=== PATIENT | female | born 1970 | race Caucasian/White ===

== ENCOUNTER 2022-09-21 09:40 | Inpatient (IN) | payer OTHER ==
[~2022-09-21] VITALS: Ht 165.1 cm; Wt 105.0 kg
[2022-09-21] MEDS ORDERED: LABETALOL HCL 5 MG/ML 20 ML VIAL IVP PRN ×2 (09:45)
[2022-09-21] MEDS ORDERED: IOHEXOL 350 MG/ML 100 ML VIAL ONE (10:08)
[2022-09-21] MEDS ORDERED: SODIUM CHLORIDE 0.9% 100 ML ONE (10:08)
[2022-09-21 10:14] LABS: BASOPHILS % (AUTO) 0.7 % (0.0-2.0); EOSINOPHILS % (AUTO) 2.1 % (1.0-6.0); HEMATOCRIT 43.1 % (36-46); HEMOGLOBIN 13.9 g/dL (12.0-16.0); LYMPHOCYTES # (AUTO) 2.1 K/uL (1.0-4.8); LYMPHOCYTES % (AUTO) 29.2 % (22.0-44.0); MEAN CORPUSCULAR HEMOGLOBIN 28.1 pg (26.0-34.0); MEAN CORPUSCULAR HGB CONC 32.2 G/dL (31.0-37.0); MEAN CORPUSCULAR VOLUME 87 fL (80-100); MONOCYTES # (AUTO) 0.4 K/uL (0.1-1.0); NEUTROPHILS # (AUTO) 4.5 K/uL (1.8-7.7); PLATELET COUNT (AUTO) 311 K/uL (150-450); RED BLOOD CELL COUNT(AUTO) 4.93 MIL/uL (4.00-5.20); RED CELL DISTRIBUTION WIDTH 13.6 % (11.5-14.5)
[2022-09-21 10:25] LABS: ANION GAP 8 mmol/L (8-16); CALCIUM, TOTAL 9.2 mg/dL (8.8-10.5); CARBON DIOXIDE 29 mmol/L (22-29); CHLORIDE 100 mmol/L (98-107); CREATININE 0.96 mg/dL (0.60-1.30); GLOMERULAR FILTR. RATE CALC > 60 mL/min (>60); GLUCOSE,RANDOM 316 mg/dL (70-110); POTASSIUM 4.2 mmol/L (3.5-5.1); SODIUM SERUM 137 mmol/L (136-145)
[2022-09-21 10:27] LABS: ALANINE AMINOTRANSFERASE 21 U/L (12-78); ALBUMIN 3.2 g/dL (3.4-5.0); ALKALINE PHOSPHATASE 121 U/L (46-116); ASPARTATE AMINOTRANSFERASE 11 U/L (15-37); BILIRUBIN,TOTAL 0.3 mg/dL (0.1-1.0)
[2022-09-21] MEDS ORDERED: ASPIRIN 81 MG CHEWABLE TABLET PO ONE (10:30)
[2022-09-21] MEDS ORDERED: DEXTROSE 50%-WATER 25 GM/50 ML SYRINGE IVP PRN (10:30)
[2022-09-21] MEDS ORDERED: ONDANSETRON HCL 4 MG/2 ML VIAL IVP PRN (10:30)
[2022-09-21] MEDS ORDERED: ACETAMINOPHEN 325 MG TABLET PO PRN (10:30)
[2022-09-21 10:36] LABS: PROTHROMBIN TIME 10.2 SEC (9.4-11.6)
[2022-09-21] MEDS: ASPIRIN 325 MG TABLET PO SCH (10:38)
[2022-09-21] MEDS: ATORVASTATIN CALCIUM 40 MG TABLET PO SCH (10:38)
[2022-09-21 14:38] LABS: APPEARANCE,URINE CLEAR (CLEAR); BILIRUBIN,URINE NEGATIVE (NEGATIVE); GLUCOSE, URINE (UA) NEGATIVE (NEGATIVE); KETONES,URINE NEGATIVE (NEGATIVE); LEUKOCYTE ESTERASE ,URINE NEGATIVE (NEGATIVE); NITRATE,URINE NEGATIVE (NEGATIVE); OCCULT BLOOD,URINE NEGATIVE (NEGATIVE); PROTEIN,URINE NEGATIVE (NEGATIVE); SPECIFIC GRAVITIY, URINE 1.035 (1.003-1.030); UROBILINOGEN,URINE <=1.0 mg/dL (<=1.0)
[2022-09-21 14:40] LABS: BACTERIA,URINE None Seen /HPF (None Seen); RBC,URINE None Seen /HPF (0-2); WBC,URINE None Seen /HPF (0-5)
[2022-09-21 15:03] LABS: AMPHET/METH SCREEN,URINE NEGATIVE (NEGATIVE); BARBITURATE SCREEN, URINE NEGATIVE (NEGATIVE); BENZODIAZEPINES SCREEN,URINE NEGATIVE (NEGATIVE); CANNABINOID SCREEN,URINE NEGATIVE (NEGATIVE); COCAINE SCREEN,URINE NEGATIVE (NEGATIVE); METHADONE SCREEN, URINE NEGATIVE (NEGATIVE); OPIATE SCREEN,URINE NEGATIVE (NEGATIVE); PHENCYCLIDINE SCREEN,URINE NEGATIVE (NEGATIVE)
[2022-09-21 15:07] LABS: GLUCOMETER DEV NAME(LOC) ER.6; GLUCOSE,POINT OF CARE 127 MG/DL (70-110)
[2022-09-21] MEDS: HEPARIN SODIUM,PORCINE 5,000 UNITS/ML VIAL SQ SCH ×2 (15:52→23:25)
[2022-09-21] MEDS: INSULIN LISPRO 100 UNITS/ML SQ PRN ×2 (17:23→22:16)
[2022-09-21] MEDS ORDERED: ACETAMINOPHEN 500 MG TABLET PO ONE (18:45)
[2022-09-21] MEDS ORDERED: IPRATROPIUM BROMIDE 0.5 MG/2.5 ML NEB SOLUTION NEB ONE (19:15)
[2022-09-21] MEDS ORDERED: ALBUTEROL SULFATE 2.5 MG/0.5 ML NEB SOLUTION NEB ONE (19:15)
[2022-09-21 19:42] LABS: AMPHET/METH SCREEN,URINE POSITIVE (NEGATIVE); BARBITURATE SCREEN, URINE NEGATIVE (NEGATIVE); BENZODIAZEPINES SCREEN,URINE NEGATIVE (NEGATIVE); CANNABINOID SCREEN,URINE NEGATIVE (NEGATIVE); COCAINE SCREEN,URINE NEGATIVE (NEGATIVE); METHADONE SCREEN, URINE NEGATIVE (NEGATIVE); OPIATE SCREEN,URINE NEGATIVE (NEGATIVE); PHENCYCLIDINE SCREEN,URINE NEGATIVE (NEGATIVE)
[2022-09-21 20:27] VITALS: BP 155/82; PULSE 69; RESP 18; TEMP 98.4
[2022-09-21 20:47] LABS: GLUCOMETER DEV NAME(LOC) 5S.2C; GLUCOSE,POINT OF CARE 188 MG/DL (70-110)
[2022-09-21] MEDS: FAMOTIDINE 20 MG TABLET PO SCH (22:15)
[2022-09-21] MEDS: DOCUSATE SODIUM 100 MG CAPSULE PO SCH (22:15)
[2022-09-21] MEDS: MELATONIN 3 MG TABLET PO PRN (23:25)
[2022-09-21 23:35] VITALS: BP 154/77; PULSE 72; RESP 19; TEMP 98.1
[2022-09-22] VITALS (9 sets, daily range): BP systolic 133–175; BP diastolic 72–100; PULSE 72–85; RESP 16–20; TEMP 97.9–98.1; O2SAT 92–95
[2022-09-22] MEDS ORDERED: LORazepam 2 MG/ML VIAL IVP ONE (03:00)
[2022-09-22 05:41] LABS: GLUCOMETER DEV NAME(LOC) 5S.1B; GLUCOSE,POINT OF CARE 200 MG/DL (70-110)
[2022-09-22] MEDS: INSULIN LISPRO 100 UNITS/ML SQ PRN ×4 (05:49→21:29)
[2022-09-22] MEDS: FAMOTIDINE 20 MG TABLET PO SCH ×2 (08:47→21:28)
[2022-09-22] MEDS: DOCUSATE SODIUM 100 MG CAPSULE PO SCH ×2 (08:47→21:28)
[2022-09-22] MEDS: HEPARIN SODIUM,PORCINE 5,000 UNITS/ML VIAL SQ SCH ×3 (08:47→23:47)
[2022-09-22] MEDS: ASPIRIN 325 MG TABLET PO SCH (08:47)
[2022-09-22] MEDS: ATORVASTATIN CALCIUM 40 MG TABLET PO SCH (08:47)
[2022-09-22] MEDS ORDERED: LORazepam 1 MG TABLET PO ONE (10:15)
[2022-09-22] MEDS: ALBUTEROL SULFATE 2.5 MG/0.5 ML NEB SOLUTION NEB PRN ×2 (13:14→21:14)
[2022-09-22] MEDS: IPRATROPIUM BROMIDE 0.5 MG/2.5 ML NEB SOLUTION NEB PRN ×2 (13:14→21:14)
[2022-09-22 17:18] LABS: GLUCOMETER DEV NAME(LOC) 5N.2C; GLUCOSE,POINT OF CARE 232 MG/DL (70-110)
[2022-09-22] MEDS: MELATONIN 3 MG TABLET PO PRN (21:28)
[2022-09-22 21:31] LABS: GLUCOMETER DEV NAME(LOC) 5S.2C; GLUCOSE,POINT OF CARE 223 MG/DL (70-110)
[2022-09-22 21:31] LABS: GLUCOMETER DEV NAME(LOC) 5S.2C; GLUCOSE,POINT OF CARE 153 MG/DL (70-110)
[2022-09-23] VITALS (11 sets, daily range): BP systolic 132–156; BP diastolic 55–83; PULSE 65–86; RESP 17–20; TEMP 98–98.2; O2SAT 97–100
[2022-09-23] MEDS: INSULIN LISPRO 100 UNITS/ML SQ PRN ×4 (05:56→20:33)
[2022-09-23 05:58] LABS: GLUCOMETER DEV NAME(LOC) 5N.1C; GLUCOSE,POINT OF CARE 182 MG/DL (70-110)
[2022-09-23] MEDS: AmLODIPine BESYLATE 5 MG TABLET PO SCH (07:58)
[2022-09-23] MEDS: ASPIRIN 325 MG TABLET PO SCH (07:58)
[2022-09-23] MEDS: FAMOTIDINE 20 MG TABLET PO SCH ×2 (07:58→20:07)
[2022-09-23] MEDS: ATORVASTATIN CALCIUM 40 MG TABLET PO SCH (07:58)
[2022-09-23] MEDS: DOCUSATE SODIUM 100 MG CAPSULE PO SCH ×2 (07:59→20:07)
[2022-09-23] MEDS: HEPARIN SODIUM,PORCINE 5,000 UNITS/ML VIAL SQ SCH ×3 (07:59→23:57)
[2022-09-23 11:29] LABS: GLUCOMETER DEV NAME(LOC) 5S.2C; GLUCOSE,POINT OF CARE 225 MG/DL (70-110)
[2022-09-23] MEDS: ALBUTEROL SULFATE 2.5 MG/0.5 ML NEB SOLUTION NEB PRN ×2 (11:35→19:00)
[2022-09-23] MEDS: IPRATROPIUM BROMIDE 0.5 MG/2.5 ML NEB SOLUTION NEB PRN ×2 (11:36→19:00)
[2022-09-23 17:48] LABS: GLUCOMETER DEV NAME(LOC) 5N.1C; GLUCOSE,POINT OF CARE 152 MG/DL (70-110)
[2022-09-23] MEDS: MetFORMIN HCL 500 MG TABLET PO SCH (18:00)
[2022-09-23] MEDS: MELATONIN 3 MG TABLET PO PRN (21:13)
[2022-09-23 23:42] LABS: GLUCOMETER DEV NAME(LOC) 5N.1C; GLUCOSE,POINT OF CARE 207 MG/DL (70-110)
[2022-09-24] VITALS (11 sets, daily range): BP systolic 121–148; BP diastolic 63–84; PULSE 63–86; RESP 18–19; TEMP 97.7–98.6; O2SAT 94–100
[2022-09-24] MEDS ORDERED: LORazepam 2 MG/ML VIAL IVP ONE ×3 (00:15→15:00)
[2022-09-24] MEDS ORDERED: LORazepam 2 MG/ML VIAL IM ONE (00:15)
[2022-09-24] MEDS: INSULIN LISPRO 100 UNITS/ML SQ PRN ×4 (06:03→20:14)
[2022-09-24 06:14] LABS: CHOL/HDL RATIO 2.6 (3.9-5.7)
[2022-09-24] MEDS: MetFORMIN HCL 500 MG TABLET PO SCH ×2 (08:00→18:00)
[2022-09-24] MEDS: HEPARIN SODIUM,PORCINE 5,000 UNITS/ML VIAL SQ SCH ×3 (08:28→23:21)
[2022-09-24] MEDS: AmLODIPine BESYLATE 5 MG TABLET PO SCH (08:29)
[2022-09-24] MEDS: ASPIRIN 325 MG TABLET PO SCH (08:29)
[2022-09-24] MEDS: FAMOTIDINE 20 MG TABLET PO SCH ×2 (08:29→20:01)
[2022-09-24] MEDS: ATORVASTATIN CALCIUM 40 MG TABLET PO SCH (08:29)
[2022-09-24] MEDS: DOCUSATE SODIUM 100 MG CAPSULE PO SCH ×2 (08:29→20:01)
[2022-09-24] MEDS: ALBUTEROL SULFATE 2.5 MG/0.5 ML NEB SOLUTION NEB PRN ×2 (13:40→19:51)
[2022-09-24] MEDS: IPRATROPIUM BROMIDE 0.5 MG/2.5 ML NEB SOLUTION NEB PRN ×2 (13:40→19:51)
[2022-09-24 17:49] LABS: GLUCOMETER DEV NAME(LOC) 5N.1C; GLUCOSE,POINT OF CARE 194 MG/DL (70-110)
[2022-09-24] MEDS: MELATONIN 3 MG TABLET PO PRN (20:01)
[2022-09-24 21:22] LABS: GLUCOMETER DEV NAME(LOC) 5S.1B; GLUCOSE,POINT OF CARE 235 MG/DL (70-110)
[2022-09-25] VITALS (8 sets, daily range): BP systolic 118–139; BP diastolic 67–78; PULSE 70–77; RESP 18–20; TEMP 97.6–98.2; O2SAT 95–99
[2022-09-25 00:08] LABS: GLUCOMETER DEV NAME(LOC) 5S.2C; GLUCOSE,POINT OF CARE 234 MG/DL (70-110)
[2022-09-25 00:08] LABS: GLUCOMETER DEV NAME(LOC) 5S.2C; GLUCOSE,POINT OF CARE 163 MG/DL (70-110)
[2022-09-25] MEDS: INSULIN LISPRO 100 UNITS/ML SQ PRN ×3 (06:10→17:35)
[2022-09-25] MEDS: MetFORMIN HCL 500 MG TABLET PO SCH (08:00)
[2022-09-25] MEDS: ATORVASTATIN CALCIUM 40 MG TABLET PO SCH (08:39)
[2022-09-25] MEDS: AmLODIPine BESYLATE 5 MG TABLET PO SCH (08:39)
[2022-09-25] MEDS: DOCUSATE SODIUM 100 MG CAPSULE PO SCH (08:39)
[2022-09-25] MEDS: HEPARIN SODIUM,PORCINE 5,000 UNITS/ML VIAL SQ SCH ×2 (08:39→16:00)
[2022-09-25] MEDS: FAMOTIDINE 20 MG TABLET PO SCH (08:39)
[2022-09-25] MEDS: ASPIRIN 325 MG TABLET PO SCH (08:39)
[2022-09-25] MEDS ORDERED: ASPI81TA87 PO (11:21)
[2022-09-25] MEDS: ALBUTEROL SULFATE 2.5 MG/0.5 ML NEB SOLUTION NEB PRN (11:23)
[2022-09-25] MEDS: IPRATROPIUM BROMIDE 0.5 MG/2.5 ML NEB SOLUTION NEB PRN (11:24)
[2022-09-25] MEDS ORDERED: AMLO-257 PO (11:31)
[2022-09-25] MEDS ORDERED: ATOR40TA28 PO (11:31)
[2022-09-25] MEDS ORDERED: FAMO20 PO (11:32)
[2022-09-25] MEDS ORDERED: DOCU-385 PO (11:32)
[2022-09-25] MEDS ORDERED: GLIP5TAB12 PO (11:33)
[2022-09-25] MEDS ORDERED: ACET-2247 PO (11:34)
[2022-09-25] MEDS ORDERED: ALBU2.5V39 NEB (11:35)
[2022-09-25] MEDS ORDERED: INSU100V SQ (11:37)
[2022-09-25 17:28] LABS: GLUCOMETER DEV NAME(LOC) 5S.1B; GLUCOSE,POINT OF CARE 166 MG/DL (70-110)
[2022-09-25] MEDS ORDERED: MetFORMIN HCL 850 MG TABLET PO SCH (18:00)
[2022-09-25 20:27] LABS: GLUCOMETER DEV NAME(LOC) 5N.2C; GLUCOSE,POINT OF CARE 189 MG/DL (70-110)
[2022-09-25 20:27] LABS: GLUCOMETER DEV NAME(LOC) 5N.2C; GLUCOSE,POINT OF CARE 201 MG/DL (70-110)
[2022-09-26] MEDS ORDERED: GlipiZIDE 5 MG TABLET PO SCH (06:30)
[2022-09-26] MEDS ORDERED: ASPIRIN 81 MG CHEWABLE TABLET PO SCH (09:00)
== END 2022-09-25 18:45 | DRG 65 ==
LOC: EMS 09:40 → 5S 19:21
PROVIDERS: ADMIT Internal Medicine; ATTEND Internal Medicine
DX: I63.9 Cerebral infarction, unspecified (principal); G81.94 Hemiplegia, unspecified affecting left nondominant side; E11.9 Type 2 diabetes mellitus without complications; E66.01 Morbid (severe) obesity due to excess calories; R29.704 NIHSS score 4; F17.210 Nicotine dependence, cigarettes, uncomplicated; J44.9 Chronic obstructive pulmonary disease, unspecified; R29.810 Facial weakness; Z83.3 Family history of diabetes mellitus; Z68.38 Body mass index [BMI] 38.0-38.9, adult; Z88.5 Allergy status to narcotic agent; Z71.6 Tobacco abuse counseling
CPT/HCPCS: 70496; 70498; 70551; 71045; 80053; 80061; 80307; 81001; 82948; 82962; 84484; 85025; 85610; 85730; 86850; 86900; 86901; 92507; 92523; 92526; 92610; 93005; 93306; 94640; 97116; 97162; 97166; 97530; 97535; 99291; J1644; J1815; J2060; J7050; Q9967; 36415-L1; 36415-TC; 70450; 70450-TC; J7613

== ENCOUNTER 2023-02-09 15:34 | Emergency (ER) | payer OTHER ==
[~2023-02-09] VITALS: Ht 167.6 cm; Wt 113.9 kg
[~2023-02-09 15:34] MED LIST: ACET-2247 PO; ALBU2.5V39 NEB; AMLO-257 PO; ATOR40TA28 PO; DOCU-385 PO; FAMO20 PO; FLUT1BLS IH; GABA-1181 PO; GLIP5TAB16 PO; HYDR-4527 PO; INSLAN SQ
[2023-02-09 17:37] VITALS: BP 151/72; PULSE 70; RESP 16; TEMP 98.2
[2023-02-09] MEDS ORDERED: ACETAMINOPHEN 500 MG TABLET PO ONE (18:00)
== END 2023-02-09 20:03 | disposition still patient (30) ==
LOC: EMS 15:35
DX: S09.90XA Unspecified injury of head, initial encounter (principal); S62.632A Displaced fracture of distal phalanx of right middle finger, initial encounter for closed fracture; R42 Dizziness and giddiness; J44.9 Chronic obstructive pulmonary disease, unspecified; E11.9 Type 2 diabetes mellitus without complications; I11.0 Hypertensive heart disease with heart failure; I50.9 Heart failure, unspecified; Z90.49 Acquired absence of other specified parts of digestive tract; Z88.6 Allergy status to analgesic agent; Z98.890 Other specified postprocedural states; Y08.89XA Assault by other specified means, initial encounter; Y93.89 Activity, other specified; Y92.89 Other specified places as the place of occurrence of the external cause; Y99.8 Other external cause status
CPT/HCPCS: 70450; 82962; 99284

== ENCOUNTER 2023-03-07 18:43 | Inpatient (IN) | payer MEDICAID, OTHER ==
[~2023-03-07] VITALS: Ht 167.6 cm; Wt 106.8 kg
[~2023-03-07 18:43] MED LIST changes: -AMLO-257 PO; +BUSP10TA23 PO; +DULO-113 PO; -HYDR-4527 PO; -INSLAN SQ; +MONT-40 PO; +SEMA1PEN3 SQ; +TRAZ-186 PO
[2023-03-07] MEDS ORDERED: IPRATROPIUM BROMIDE 0.5 MG/2.5 ML NEB SOLUTION NEB ONE (22:15)
[2023-03-07] MEDS ORDERED: ALBUTEROL SULFATE 2.5 MG/0.5 ML NEB SOLUTION NEB ONE (22:15)
[2023-03-07] MEDS ORDERED: MethylPREDNISolone SOD SUCC 125 MG/2 ML VIAL IVP ONE (22:15)
[2023-03-07 22:35] LABS: BASOPHILS % (AUTO) 0.3 % (0.0-2.0); HEMATOCRIT 33.7 % (36-46); HEMOGLOBIN 11.2 g/dL (12.0-16.0); LYMPHOCYTES # (AUTO) 2.9 K/uL (1.0-4.8); LYMPHOCYTES % (AUTO) 30.1 % (22.0-44.0); MEAN CORPUSCULAR HGB CONC 33.3 G/dL (31.0-37.0); MEAN CORPUSCULAR VOLUME 87 fL (80-100); MONOCYTES # (AUTO) 0.6 K/uL (0.1-1.0); MONOCYTES % (AUTO) 6.5 % (2.0-9.0); NEUTROPHILS # (AUTO) 5.7 K/uL (1.8-7.7); NEUTROPHILS % (AUTO) 60.1 % (40.0-70.0); PLATELET COUNT (AUTO) 321 K/uL (150-450); RED BLOOD CELL COUNT(AUTO) 3.88 MIL/uL (4.00-5.20); RED CELL DISTRIBUTION WIDTH 14.5 % (11.5-14.5); WHITE BLOOD COUNT (AUTO) 9.5 K/uL (4.5-11.0)
[2023-03-07 22:44] LABS: ANION GAP 4 mmol/L (8-16); CALCIUM, TOTAL 9.6 mg/dL (8.8-10.5); CARBON DIOXIDE 33 mmol/L (22-29); CHLORIDE 104 mmol/L (98-107); CREATININE 1.05 mg/dL (0.60-1.30); GLOMERULAR FILTR. RATE CALC 54 mL/min (>60); GLUCOSE,RANDOM 114 mg/dL (70-110); POTASSIUM 3.9 mmol/L (3.5-5.1); SODIUM SERUM 141 mmol/L (136-145); UREA NITROGEN, BLOOD 26 mg/dL (7-18)
[2023-03-07] MEDS ORDERED: ONDANSETRON HCL 4 MG/2 ML VIAL IVP PRN (22:45)
[2023-03-07] MEDS ORDERED: ACETAMINOPHEN 325 MG TABLET PO PRN (22:45)
[2023-03-07] MEDS ORDERED: DEXTROSE 50%-WATER 25 GM/50 ML SYRINGE IVP PRN (22:45)
[2023-03-07 22:50] LABS: ALANINE AMINOTRANSFERASE 19 U/L (12-78); ALBUMIN 3.3 g/dL (3.4-5.0); ALKALINE PHOSPHATASE 101 U/L (46-116); ASPARTATE AMINOTRANSFERASE 14 U/L (15-37); BILIRUBIN,TOTAL 0.2 mg/dL (0.1-1.0); LIPASE 32 U/L (16-77); TOTAL PROTEIN, SERUM 7.5 g/dL (6.4-8.2)
[2023-03-07 22:51] LABS: TROPONIN I-HIGH SENSITIVITY 44 ng/L (<51)
[2023-03-07 22:52] LABS: LACTIC ACID 0.7 mmol/L (0.4-2.0)
[2023-03-07 22:54] LABS: B-TYPE NATRIURETIC PEPTIDE 47 pg/mL (0-100)
[2023-03-07] MEDS ORDERED: CefTRIAXone 1 GM/DEXTROSE 50 ML IV SCH (23:00)
[2023-03-07 23:31] LABS: GLUCOMETER DEV NAME(LOC) ER.6; GLUCOSE,POINT OF CARE 111 MG/DL (70-110)
[2023-03-07] MEDS: HEPARIN SODIUM,PORCINE 5,000 UNITS/ML VIAL SQ SCH (23:52)
[2023-03-08] VITALS (9 sets, daily range): BP systolic 136–156; BP diastolic 75–90; PULSE 61–91; RESP 18–20; TEMP 97.8–98.2; O2SAT 95–99
[2023-03-08] MEDS ORDERED: AZITHROMYCIN 500 MG/NS 250 ML IV SCH
[2023-03-08 00:46] LABS: COVID AG,FIA SOURCE NASAL SWAB
[2023-03-08 01:01] LABS: INFLUENZA TYPE A NEGATIVE FOR TYPE A (NEGATIVE)
[2023-03-08 01:05] LABS: SARS-COV2 (COVID) ANTIGEN,FIA Positive (Negative)
[2023-03-08 01:06] LABS: INFLUENZA TYPE B POSITIVE FOR TYPE B (NEGATIVE)
[2023-03-08 02:55] LABS: APPEARANCE,URINE HAZY (CLEAR); BILIRUBIN,URINE NEGATIVE (NEGATIVE); COLOR,URINE LIGHT YELLOW (YELLOW); GLUCOSE, URINE (UA) NEGATIVE (NEGATIVE); KETONES,URINE NEGATIVE (NEGATIVE); LEUKOCYTE ESTERASE ,URINE NEGATIVE (NEGATIVE); NITRATE,URINE NEGATIVE (NEGATIVE); OCCULT BLOOD,URINE NEGATIVE (NEGATIVE); PROTEIN,URINE NEGATIVE (NEGATIVE); SPECIFIC GRAVITIY, URINE 1.023 (1.003-1.030); UROBILINOGEN,URINE <=1.0 mg/dL (<=1.0)
[2023-03-08 03:02] LABS: ALCOHOL, URINE DRUG SCREEN NEGATIVE (NEGATIVE); AMPHET/METH SCREEN,URINE NEGATIVE (NEGATIVE); BARBITURATE SCREEN, URINE NEGATIVE (NEGATIVE); BENZODIAZEPINES SCREEN,URINE NEGATIVE (NEGATIVE); CANNABINOID SCREEN,URINE NEGATIVE (NEGATIVE); COCAINE SCREEN,URINE NEGATIVE (NEGATIVE); METHADONE SCREEN, URINE NEGATIVE (NEGATIVE); OPIATE SCREEN,URINE NEGATIVE (NEGATIVE); PHENCYCLIDINE SCREEN,URINE NEGATIVE (NEGATIVE)
[2023-03-08 03:11] LABS: BACTERIA,URINE None Seen /HPF (None Seen); RBC,URINE None Seen /HPF (0-2); SQUAMOUS EPITHELIAL CELL,UR Moderate /LPF (None Seen); WBC,URINE None Seen /HPF (0-5)
[2023-03-08] MEDS ORDERED: PNEUMOCOCCAL VACCINE POLYVALENT 0.5 ML SYRINGE [PPSV23] IM. ONE (05:30)
[2023-03-08] MEDS ORDERED: IOHEXOL 350 MG/ML 100 ML VIAL ONE ×3 (05:38→14:35)
[2023-03-08] MEDS ORDERED: SODIUM CHLORIDE 0.9% 100 ML ONE ×3 (05:38→14:52)
[2023-03-08] MEDS ORDERED: SODIUM CHLORIDE 0.9% 500 ML IV ONE (05:55)
[2023-03-08] MEDS ORDERED: REMDESIVIR 200 MG in SODIUM CHLORIDE 0.9% 250 ML IV ONE (06:00)
[2023-03-08] MEDS: INSULIN LISPRO 100 UNITS/ML SQ PRN ×4 (06:11→20:49)
[2023-03-08 06:46] LABS: BASOPHILS % (AUTO) 0.1 % (0.0-2.0); EOSINOPHILS % (AUTO) 0.2 % (1.0-6.0); HEMATOCRIT 34.3 % (36-46); HEMOGLOBIN 11.6 g/dL (12.0-16.0); LYMPHOCYTES # (AUTO) 0.9 K/uL (1.0-4.8); LYMPHOCYTES % (AUTO) 7.6 % (22.0-44.0); MEAN CORPUSCULAR HEMOGLOBIN 29.2 pg (26.0-34.0); MEAN CORPUSCULAR VOLUME 86 fL (80-100); MONOCYTES # (AUTO) 0.1 K/uL (0.1-1.0); MONOCYTES % (AUTO) 1.2 % (2.0-9.0); NEUTROPHILS # (AUTO) 10.9 K/uL (1.8-7.7); PLATELET COUNT (AUTO) 333 K/uL (150-450); RED BLOOD CELL COUNT(AUTO) 3.98 MIL/uL (4.00-5.20)
[2023-03-08 06:50] LABS: NEUTROPHILS % (AUTO) 90.9 % (40.0-70.0)
[2023-03-08 07:16] LABS: CALCIUM, TOTAL 9.5 mg/dL (8.8-10.5); CREATININE 0.99 mg/dL (0.60-1.30); MAGNESIUM 2.3 mg/dL (1.80-2.40); POTASSIUM 4.2 mmol/L (3.5-5.1)
[2023-03-08] MEDS: HEPARIN SODIUM,PORCINE 5,000 UNITS/ML VIAL SQ SCH ×3 (09:16→23:36)
[2023-03-08] MEDS: FAMOTIDINE 20 MG TABLET PO SCH ×2 (09:17→20:38)
[2023-03-08] MEDS: ATORVASTATIN CALCIUM 40 MG TABLET PO SCH (09:17)
[2023-03-08] MEDS: DOCUSATE SODIUM 100 MG CAPSULE PO SCH ×2 (09:17→20:38)
[2023-03-08] MEDS: GABAPENTIN 300 MG CAPSULE PO SCH ×4 (09:17→20:38)
[2023-03-08] MEDS: OSELTAMIVIR PHOSPHATE 30 MG CAPSULE PO SCH ×2 (09:18→20:38)
[2023-03-08] MEDS: MONTELUKAST SODIUM 10 MG TABLET PO SCH (09:32)
[2023-03-08] MEDS: DULoxetine HCL 60 MG CAPSULE PO SCH ×2 (10:13→20:38)
[2023-03-08] MEDS ORDERED: LORazepam 2 MG/ML VIAL IVP ONE (10:30)
[2023-03-08] MEDS: FLUTICASONE/VILANTEROL 200-25 MCG/INH INHALER [14] IH SCH (10:44)
[2023-03-08 11:22] LABS: GLUCOMETER DEV NAME(LOC) 6N.2B; GLUCOSE,POINT OF CARE 196 MG/DL (70-110)
[2023-03-08] MEDS ORDERED: IOHEXOL 350 MG/ML 150 ML VIAL ONE (14:52)
[2023-03-08] MEDS: ALBUTEROL SULFATE 2.5 MG/0.5 ML NEB SOLUTION NEB PRN ×2 (15:50→21:30)
[2023-03-08] MEDS: IPRATROPIUM BROMIDE 0.5 MG/2.5 ML NEB SOLUTION NEB PRN ×2 (15:50→21:30)
[2023-03-08 17:01] LABS: GLUCOMETER DEV NAME(LOC) 4E.2; GLUCOSE,POINT OF CARE 237 MG/DL (70-110)
[2023-03-08 18:46] LABS: GLUCOMETER DEV NAME(LOC) 6N.2B; GLUCOSE,POINT OF CARE 175 MG/DL (70-110)
[2023-03-08] MEDS: TraZODone HCL 100 MG TABLET PO SCH (20:38)
[2023-03-08] MEDS: INSULIN GLARGINE,HUM.REC.ANLOG 100 UNITS/ML SQ SCH (20:49)
[2023-03-09 02:41] LABS: GLUCOMETER DEV NAME(LOC) 6S.2; GLUCOSE,POINT OF CARE 163 MG/DL (70-110)
[2023-03-09] MEDS: REMDESIVIR 100 MG in SODIUM CHLORIDE 0.9% 250 ML IV SCH (05:31)
[2023-03-09 05:39] VITALS: BP 147/78; PULSE 67; RESP 19; TEMP 97.8
[2023-03-09] MEDS: INSULIN LISPRO 100 UNITS/ML SQ PRN ×2 (05:40→11:48)
[2023-03-09 07:26] LABS: GLUCOMETER DEV NAME(LOC) 6S.2; GLUCOSE,POINT OF CARE 141 MG/DL (70-110)
[2023-03-09 08:05] VITALS: BP 145/79; PULSE 67; RESP 18; TEMP 97.8
[2023-03-09] MEDS: OSELTAMIVIR PHOSPHATE 30 MG CAPSULE PO SCH ×2 (08:05→20:28)
[2023-03-09] MEDS: MONTELUKAST SODIUM 10 MG TABLET PO SCH (08:05)
[2023-03-09] MEDS: ATORVASTATIN CALCIUM 40 MG TABLET PO SCH (08:05)
[2023-03-09] MEDS: DULoxetine HCL 60 MG CAPSULE PO SCH ×2 (08:05→20:28)
[2023-03-09] MEDS: HEPARIN SODIUM,PORCINE 5,000 UNITS/ML VIAL SQ SCH ×3 (08:05→23:09)
[2023-03-09] MEDS: DOCUSATE SODIUM 100 MG CAPSULE PO SCH ×2 (08:05→20:28)
[2023-03-09] MEDS: FAMOTIDINE 20 MG TABLET PO SCH ×2 (08:05→20:28)
[2023-03-09] MEDS: BREXPIPRAZOLE 1 MG TABLET PO SCH (08:05)
[2023-03-09] MEDS: GABAPENTIN 300 MG CAPSULE PO SCH ×4 (08:05→20:28)
[2023-03-09] MEDS: FLUTICASONE/VILANTEROL 200-25 MCG/INH INHALER [14] IH SCH (08:08)
[2023-03-09 10:55] LABS: ALBUMIN 2.9 g/dL (3.4-5.0); BILIRUBIN,TOTAL 0.1 mg/dL (0.1-1.0); CALCIUM, TOTAL 8.9 mg/dL (8.8-10.5); CREATININE 1.09 mg/dL (0.60-1.30); POTASSIUM 3.8 mmol/L (3.5-5.1); TOTAL PROTEIN, SERUM 6.8 g/dL (6.4-8.2)
[2023-03-09 15:38] VITALS: BP 140/82; PULSE 78; RESP 18; TEMP 98.1
[2023-03-09 17:23] VITALS: PULSE 78; RESP 18; O2SAT 97
[2023-03-09] MEDS: ALBUTEROL SULFATE 2.5 MG/0.5 ML NEB SOLUTION NEB PRN (17:23)
[2023-03-09] MEDS: IPRATROPIUM BROMIDE 0.5 MG/2.5 ML NEB SOLUTION NEB PRN (17:23)
[2023-03-09 17:26] VITALS: PULSE 85; RESP 18; O2SAT 98
[2023-03-09 18:02] LABS: GLUCOMETER DEV NAME(LOC) 6S.2; GLUCOSE,POINT OF CARE 147 MG/DL (70-110)
[2023-03-09 18:02] LABS: GLUCOMETER DEV NAME(LOC) 6S.2; GLUCOSE,POINT OF CARE 139 MG/DL (70-110)
[2023-03-09 19:49] VITALS: BP 135/82; PULSE 81; RESP 18; TEMP 98.2
[2023-03-09] MEDS: TraZODone HCL 100 MG TABLET PO SCH (20:28)
[2023-03-09] MEDS: INSULIN GLARGINE,HUM.REC.ANLOG 100 UNITS/ML SQ SCH (20:32)
[2023-03-10] VITALS (7 sets, daily range): BP systolic 101–152; BP diastolic 54–81; PULSE 69–75; RESP 18–20; TEMP 97.7–98.2; O2SAT 92–100
[2023-03-10 00:06] LABS: GLUCOMETER DEV NAME(LOC) 4E.2; GLUCOSE,POINT OF CARE 139 MG/DL (70-110)
[2023-03-10] MEDS: REMDESIVIR 100 MG in SODIUM CHLORIDE 0.9% 250 ML IV SCH ×2 (05:59→14:17)
[2023-03-10 07:30] LABS: GLUCOMETER DEV NAME(LOC) 4E.2; GLUCOSE,POINT OF CARE 129 MG/DL (70-110)
[2023-03-10] MEDS ORDERED: ONDANSETRON HCL 4 MG TABLET PO PRN (07:45)
[2023-03-10 08:12] LABS: ALBUMIN 2.9 g/dL (3.4-5.0); BILIRUBIN,TOTAL 0.2 mg/dL (0.1-1.0); CALCIUM, TOTAL 9.1 mg/dL (8.8-10.5); CREATININE 1.05 mg/dL (0.60-1.30); TOTAL PROTEIN, SERUM 6.9 g/dL (6.4-8.2)
[2023-03-10] MEDS: GABAPENTIN 300 MG CAPSULE PO SCH ×4 (08:32→20:45)
[2023-03-10] MEDS: DOCUSATE SODIUM 100 MG CAPSULE PO SCH ×2 (08:32→20:44)
[2023-03-10] MEDS: FAMOTIDINE 20 MG TABLET PO SCH ×2 (08:33→20:44)
[2023-03-10] MEDS: MONTELUKAST SODIUM 10 MG TABLET PO SCH (08:33)
[2023-03-10] MEDS: ATORVASTATIN CALCIUM 40 MG TABLET PO SCH (08:33)
[2023-03-10] MEDS: HEPARIN SODIUM,PORCINE 5,000 UNITS/ML VIAL SQ SCH ×2 (08:33→17:00)
[2023-03-10] MEDS: BREXPIPRAZOLE 1 MG TABLET PO SCH (09:14)
[2023-03-10] MEDS: DULoxetine HCL 60 MG CAPSULE PO SCH ×2 (09:14→20:44)
[2023-03-10] MEDS: OSELTAMIVIR PHOSPHATE 30 MG CAPSULE PO SCH ×2 (09:15→20:45)
[2023-03-10] MEDS: IPRATROPIUM BROMIDE 0.5 MG/2.5 ML NEB SOLUTION NEB PRN ×2 (09:40→16:56)
[2023-03-10] MEDS: ALBUTEROL SULFATE 2.5 MG/0.5 ML NEB SOLUTION NEB PRN ×2 (09:40→16:57)
[2023-03-10] MEDS: FLUTICASONE/VILANTEROL 200-25 MCG/INH INHALER [14] IH SCH (10:20)
[2023-03-10 12:37] LABS: GLUCOMETER DEV NAME(LOC) 4E.2; GLUCOSE,POINT OF CARE 137 MG/DL (70-110)
[2023-03-10] MEDS: INSULIN LISPRO 100 UNITS/ML SQ PRN ×2 (18:02→20:52)
[2023-03-10 20:01] LABS: GLUCOMETER DEV NAME(LOC) 6S.2; GLUCOSE,POINT OF CARE 146 MG/DL (70-110)
[2023-03-10] MEDS: TraZODone HCL 100 MG TABLET PO SCH (20:44)
[2023-03-10] MEDS: INSULIN GLARGINE,HUM.REC.ANLOG 100 UNITS/ML SQ SCH (20:51)
[2023-03-10 21:17] LABS: GLUCOMETER DEV NAME(LOC) 6S.2; GLUCOSE,POINT OF CARE 141 MG/DL (70-110)
[2023-03-11] VITALS (8 sets, daily range): BP systolic 102–120; BP diastolic 54–70; PULSE 73–95; RESP 17–22; TEMP 97.7–98.2; O2SAT 93–97
[2023-03-11] MEDS: HEPARIN SODIUM,PORCINE 5,000 UNITS/ML VIAL SQ SCH ×4 (00:08→23:44)
[2023-03-11 06:26] LABS: GLUCOMETER DEV NAME(LOC) 6S.2; GLUCOSE,POINT OF CARE 127 MG/DL (70-110)
[2023-03-11 08:31] LABS: ALBUMIN 3.3 g/dL (3.4-5.0); BILIRUBIN,TOTAL 0.2 mg/dL (0.1-1.0); CALCIUM, TOTAL 9.5 mg/dL (8.8-10.5); CREATININE 1.1 mg/dL (0.60-1.30); POTASSIUM 4.7 mmol/L (3.5-5.1); TOTAL PROTEIN, SERUM 7.4 g/dL (6.4-8.2)
[2023-03-11] MEDS: MONTELUKAST SODIUM 10 MG TABLET PO SCH (08:57)
[2023-03-11] MEDS: ATORVASTATIN CALCIUM 40 MG TABLET PO SCH (08:57)
[2023-03-11] MEDS: GABAPENTIN 300 MG CAPSULE PO SCH ×4 (08:58→20:49)
[2023-03-11] MEDS: DULoxetine HCL 60 MG CAPSULE PO SCH ×2 (08:58→20:48)
[2023-03-11] MEDS: ARIPiprazole 5 MG TABLET PO SCH (08:58)
[2023-03-11] MEDS: FAMOTIDINE 20 MG TABLET PO SCH ×2 (08:58→18:54)
[2023-03-11] MEDS: DOCUSATE SODIUM 100 MG CAPSULE PO SCH ×2 (08:58→20:48)
[2023-03-11] MEDS: OSELTAMIVIR PHOSPHATE 30 MG CAPSULE PO SCH ×2 (08:58→20:50)
[2023-03-11] MEDS: FLUTICASONE/VILANTEROL 200-25 MCG/INH INHALER [14] IH SCH (08:59)
[2023-03-11] MEDS: ALBUTEROL SULFATE 2.5 MG/0.5 ML NEB SOLUTION NEB PRN ×2 (12:08→18:44)
[2023-03-11] MEDS: IPRATROPIUM BROMIDE 0.5 MG/2.5 ML NEB SOLUTION NEB PRN ×2 (12:08→18:44)
[2023-03-11] MEDS: INSULIN LISPRO 100 UNITS/ML SQ PRN ×2 (12:33→21:01)
[2023-03-11] MEDS: REMDESIVIR 100 MG in SODIUM CHLORIDE 0.9% 250 ML IV SCH (13:52)
[2023-03-11] MEDS: TraZODone HCL 100 MG TABLET PO SCH (20:48)
[2023-03-11] MEDS: INSULIN GLARGINE,HUM.REC.ANLOG 100 UNITS/ML SQ SCH (21:01)
[2023-03-11 21:26] LABS: GLUCOMETER DEV NAME(LOC) 6S.2; GLUCOSE,POINT OF CARE 115 MG/DL (70-110)
[2023-03-11 21:26] LABS: GLUCOMETER DEV NAME(LOC) 6S.2; GLUCOSE,POINT OF CARE 141 MG/DL (70-110)
[2023-03-11 23:11] LABS: GLUCOMETER DEV NAME(LOC) 4E.2; GLUCOSE,POINT OF CARE 159 MG/DL (70-110)
[2023-03-12] VITALS (10 sets, daily range): BP systolic 102–117; BP diastolic 58–77; PULSE 76–97; RESP 16–19; TEMP 98–98.4; O2SAT 84–97
[2023-03-12 06:36] LABS: GLUCOMETER DEV NAME(LOC) 4E.2; GLUCOSE,POINT OF CARE 132 MG/DL (70-110)
[2023-03-12] MEDS: FAMOTIDINE 20 MG TABLET PO SCH ×2 (08:57→21:10)
[2023-03-12] MEDS: HEPARIN SODIUM,PORCINE 5,000 UNITS/ML VIAL SQ SCH ×3 (08:57→23:58)
[2023-03-12] MEDS: OSELTAMIVIR PHOSPHATE 30 MG CAPSULE PO SCH ×2 (08:57→21:10)
[2023-03-12] MEDS: GABAPENTIN 300 MG CAPSULE PO SCH ×4 (08:57→21:10)
[2023-03-12] MEDS: MONTELUKAST SODIUM 10 MG TABLET PO SCH (08:57)
[2023-03-12] MEDS: DULoxetine HCL 60 MG CAPSULE PO SCH ×2 (08:57→21:10)
[2023-03-12] MEDS: ARIPiprazole 5 MG TABLET PO SCH (09:00)
[2023-03-12] MEDS: FLUTICASONE/VILANTEROL 200-25 MCG/INH INHALER [14] IH SCH (09:02)
[2023-03-12] MEDS: ATORVASTATIN CALCIUM 40 MG TABLET PO SCH (09:04)
[2023-03-12] MEDS: DOCUSATE SODIUM 100 MG CAPSULE PO SCH ×2 (09:04→21:10)
[2023-03-12] MEDS: ALBUTEROL SULFATE 2.5 MG/0.5 ML NEB SOLUTION NEB PRN ×3 (10:08→21:56)
[2023-03-12] MEDS: IPRATROPIUM BROMIDE 0.5 MG/2.5 ML NEB SOLUTION NEB PRN ×3 (10:08→21:56)
[2023-03-12 12:41] LABS: GLUCOMETER DEV NAME(LOC) 4E.2; GLUCOSE,POINT OF CARE 138 MG/DL (70-110)
[2023-03-12] MEDS: INSULIN LISPRO 100 UNITS/ML SQ PRN ×2 (17:27→21:20)
[2023-03-12 20:17] LABS: GLUCOMETER DEV NAME(LOC) 6N.2B; GLUCOSE,POINT OF CARE 158 MG/DL (70-110)
[2023-03-12] MEDS: TraZODone HCL 100 MG TABLET PO SCH (21:10)
[2023-03-12] MEDS: INSULIN GLARGINE,HUM.REC.ANLOG 100 UNITS/ML SQ SCH (21:19)
[2023-03-12 21:46] LABS: GLUCOMETER DEV NAME(LOC) 4E.2; GLUCOSE,POINT OF CARE 164 MG/DL (70-110)
[2023-03-13] VITALS (7 sets, daily range): BP systolic 115–124; BP diastolic 59–75; PULSE 71–86; RESP 18–20; TEMP 97.9–98.1; O2SAT 94–97
[2023-03-13 06:46] LABS: GLUCOMETER DEV NAME(LOC) 6S.2; GLUCOSE,POINT OF CARE 134 MG/DL (70-110)
[2023-03-13] MEDS: IPRATROPIUM BROMIDE 0.5 MG/2.5 ML NEB SOLUTION NEB PRN ×2 (08:15→14:47)
[2023-03-13] MEDS: ALBUTEROL SULFATE 2.5 MG/0.5 ML NEB SOLUTION NEB PRN ×2 (08:16→14:47)
[2023-03-13] MEDS: HEPARIN SODIUM,PORCINE 5,000 UNITS/ML VIAL SQ SCH ×3 (08:28→23:05)
[2023-03-13] MEDS: MONTELUKAST SODIUM 10 MG TABLET PO SCH (08:28)
[2023-03-13] MEDS: DOCUSATE SODIUM 100 MG CAPSULE PO SCH ×2 (08:28→20:34)
[2023-03-13] MEDS: GABAPENTIN 300 MG CAPSULE PO SCH ×4 (08:28→20:34)
[2023-03-13] MEDS: FAMOTIDINE 20 MG TABLET PO SCH ×2 (08:28→20:34)
[2023-03-13] MEDS: ATORVASTATIN CALCIUM 40 MG TABLET PO SCH (08:28)
[2023-03-13] MEDS: DULoxetine HCL 60 MG CAPSULE PO SCH ×2 (08:28→20:34)
[2023-03-13] MEDS: FLUTICASONE/VILANTEROL 200-25 MCG/INH INHALER [14] IH SCH (08:32)
[2023-03-13] MEDS: ARIPiprazole 5 MG TABLET PO SCH (08:33)
[2023-03-13] MEDS: INSULIN LISPRO 100 UNITS/ML SQ PRN ×2 (11:41→20:39)
[2023-03-13 12:01] LABS: GLUCOMETER DEV NAME(LOC) 4E.2; GLUCOSE,POINT OF CARE 164 MG/DL (70-110)
[2023-03-13] MEDS ORDERED: 0.9% SODIUM CHLORIDE 5 ML NEB SOLUTION NEB ONE (14:42)
[2023-03-13] MEDS: HydrOXYzine PAMOATE 25 MG CAPSULE PO PRN (17:38)
[2023-03-13] MEDS: GlipiZIDE 5 MG TABLET PO SCH (17:38)
[2023-03-13 18:07] LABS: GLUCOMETER DEV NAME(LOC) 6N.2B; GLUCOSE,POINT OF CARE 132 MG/DL (70-110)
[2023-03-13] MEDS: TraZODone HCL 100 MG TABLET PO SCH (20:34)
[2023-03-14 04:07] VITALS: BP 135/73; PULSE 81; RESP 18; TEMP 97.6
[2023-03-14 04:51] LABS: GLUCOMETER DEV NAME(LOC) 4E.2; GLUCOSE,POINT OF CARE 171 MG/DL (70-110)
[2023-03-14] MEDS: GlipiZIDE 5 MG TABLET PO SCH ×2 (06:17→17:09)
[2023-03-14 06:38] LABS: BASOPHILS % (AUTO) 0.9 % (0.0-2.0); EOSINOPHILS % (AUTO) 2.4 % (1.0-6.0); HEMATOCRIT 35.7 % (36-46); HEMOGLOBIN 11.8 g/dL (12.0-16.0); LYMPHOCYTES # (AUTO) 2.8 K/uL (1.0-4.8); LYMPHOCYTES % (AUTO) 24.7 % (22.0-44.0); MEAN CORPUSCULAR HEMOGLOBIN 28.6 pg (26.0-34.0); MEAN CORPUSCULAR HGB CONC 33.2 G/dL (31.0-37.0); MEAN CORPUSCULAR VOLUME 86 fL (80-100); MONOCYTES # (AUTO) 0.7 K/uL (0.1-1.0); MONOCYTES % (AUTO) 6.1 % (2.0-9.0); NEUTROPHILS # (AUTO) 7.5 K/uL (1.8-7.7); NEUTROPHILS % (AUTO) 65.9 % (40.0-70.0); PLATELET COUNT (AUTO) 271 K/uL (150-450); RED BLOOD CELL COUNT(AUTO) 4.14 MIL/uL (4.00-5.20); RED CELL DISTRIBUTION WIDTH 14.7 % (11.5-14.5); WHITE BLOOD COUNT (AUTO) 11.3 K/uL (4.5-11.0)
[2023-03-14] MEDS: DULoxetine HCL 60 MG CAPSULE PO SCH ×2 (08:55→19:56)
[2023-03-14] MEDS: DOCUSATE SODIUM 100 MG CAPSULE PO SCH ×2 (08:55→19:56)
[2023-03-14] MEDS: GABAPENTIN 300 MG CAPSULE PO SCH ×4 (08:55→19:56)
[2023-03-14] MEDS: ATORVASTATIN CALCIUM 40 MG TABLET PO SCH (08:55)
[2023-03-14] MEDS: FAMOTIDINE 20 MG TABLET PO SCH ×2 (08:56→19:56)
[2023-03-14] MEDS: ARIPiprazole 5 MG TABLET PO SCH (08:56)
[2023-03-14] MEDS: MONTELUKAST SODIUM 10 MG TABLET PO SCH (08:56)
[2023-03-14] MEDS: HEPARIN SODIUM,PORCINE 5,000 UNITS/ML VIAL SQ SCH ×3 (08:57→23:57)
[2023-03-14 09:11] VITALS: BP 135/51; PULSE 76; RESP 18; TEMP 97.7
[2023-03-14 12:02] LABS: GLUCOMETER DEV NAME(LOC) 6S.2; GLUCOSE,POINT OF CARE 120 MG/DL (70-110)
[2023-03-14] MEDS: INSULIN LISPRO 100 UNITS/ML SQ PRN ×3 (12:14→20:08)
[2023-03-14] MEDS: IPRATROPIUM BROMIDE 0.5 MG/2.5 ML NEB SOLUTION NEB PRN (12:17)
[2023-03-14] MEDS: ALBUTEROL SULFATE 2.5 MG/0.5 ML NEB SOLUTION NEB PRN (12:17)
[2023-03-14 12:19] VITALS: PULSE 88; RESP 16; O2SAT 95
[2023-03-14 12:20] VITALS: PULSE 88; RESP 16; O2SAT 95
[2023-03-14] MEDS: FLUTICASONE/VILANTEROL 200-25 MCG/INH INHALER [14] IH SCH (13:20)
[2023-03-14 15:16] LABS: GLUCOMETER DEV NAME(LOC) 4E.2; GLUCOSE,POINT OF CARE 147 MG/DL (70-110)
[2023-03-14 17:36] LABS: GLUCOMETER DEV NAME(LOC) 6N.2B; GLUCOSE,POINT OF CARE 149 MG/DL (70-110)
[2023-03-14 19:33] VITALS: BP 133/58; PULSE 80; RESP 18; TEMP 98.1
[2023-03-14] MEDS: TraZODone HCL 100 MG TABLET PO SCH (19:56)
[2023-03-14 20:41] LABS: GLUCOMETER DEV NAME(LOC) 6N.2B; GLUCOSE,POINT OF CARE 192 MG/DL (70-110)
[2023-03-15] VITALS (7 sets, daily range): BP systolic 117–153; BP diastolic 46–77; PULSE 76–92; RESP 16–20; TEMP 97.7–98.2; O2SAT 95–98
[2023-03-15] MEDS: GlipiZIDE 5 MG TABLET PO SCH ×2 (06:03→17:18)
[2023-03-15] MEDS: ARIPiprazole 5 MG TABLET PO SCH (08:36)
[2023-03-15] MEDS: GABAPENTIN 300 MG CAPSULE PO SCH ×4 (08:36→22:25)
[2023-03-15] MEDS: FAMOTIDINE 20 MG TABLET PO SCH ×2 (08:37→22:25)
[2023-03-15] MEDS: MONTELUKAST SODIUM 10 MG TABLET PO SCH (08:37)
[2023-03-15] MEDS: HEPARIN SODIUM,PORCINE 5,000 UNITS/ML VIAL SQ SCH ×2 (08:37→16:21)
[2023-03-15] MEDS: DULoxetine HCL 60 MG CAPSULE PO SCH ×2 (08:37→22:24)
[2023-03-15] MEDS: DOCUSATE SODIUM 100 MG CAPSULE PO SCH ×2 (08:37→22:24)
[2023-03-15] MEDS: ATORVASTATIN CALCIUM 40 MG TABLET PO SCH (08:37)
[2023-03-15] MEDS: FLUTICASONE/VILANTEROL 200-25 MCG/INH INHALER [14] IH SCH (08:43)
[2023-03-15] MEDS: INSULIN LISPRO 100 UNITS/ML SQ PRN ×2 (11:29→17:23)
[2023-03-15] MEDS: GuaiFENesin SR 600 MG ER TABLET PO SCH ×2 (12:51→22:24)
[2023-03-15] MEDS: IPRATROPIUM BROMIDE 0.5 MG/2.5 ML NEB SOLUTION NEB PRN ×3 (16:43→19:48)
[2023-03-15] MEDS: ALBUTEROL SULFATE 2.5 MG/0.5 ML NEB SOLUTION NEB PRN ×2 (16:43→19:49)
[2023-03-15] MEDS: HydrOXYzine PAMOATE 25 MG CAPSULE PO PRN (17:18)
[2023-03-15] MEDS: TraZODone HCL 100 MG TABLET PO SCH (22:24)
[2023-03-15 23:51] LABS: GLUCOMETER DEV NAME(LOC) 6S.2; GLUCOSE,POINT OF CARE 106 MG/DL (70-110)
[2023-03-16] MEDS: HEPARIN SODIUM,PORCINE 5,000 UNITS/ML VIAL SQ SCH ×4 (00:25→23:53)
[2023-03-16 04:05] VITALS: BP 109/55; PULSE 69; RESP 20; TEMP 97.7
[2023-03-16] MEDS: GlipiZIDE 5 MG TABLET PO SCH ×2 (05:49→16:24)
[2023-03-16 05:56] LABS: GLUCOMETER DEV NAME(LOC) 4E.2; GLUCOSE,POINT OF CARE 116 MG/DL (70-110)
[2023-03-16] MEDS: ATORVASTATIN CALCIUM 40 MG TABLET PO SCH (08:13)
[2023-03-16] MEDS: FAMOTIDINE 20 MG TABLET PO SCH ×2 (08:13→20:56)
[2023-03-16] MEDS: DULoxetine HCL 60 MG CAPSULE PO SCH ×2 (08:13→20:55)
[2023-03-16] MEDS: GABAPENTIN 300 MG CAPSULE PO SCH ×4 (08:14→20:56)
[2023-03-16] MEDS: ARIPiprazole 5 MG TABLET PO SCH (08:14)
[2023-03-16] MEDS: GuaiFENesin SR 600 MG ER TABLET PO SCH ×2 (08:14→20:56)
[2023-03-16] MEDS: MONTELUKAST SODIUM 10 MG TABLET PO SCH (08:14)
[2023-03-16] MEDS: DOCUSATE SODIUM 100 MG CAPSULE PO SCH ×2 (08:14→20:55)
[2023-03-16] MEDS: FLUTICASONE/VILANTEROL 200-25 MCG/INH INHALER [14] IH SCH (08:19)
[2023-03-16 08:21] LABS: GLUCOMETER DEV NAME(LOC) 6N.2B; GLUCOSE,POINT OF CARE 163 MG/DL (70-110)
[2023-03-16 08:21] LABS: GLUCOMETER DEV NAME(LOC) 6N.2B; GLUCOSE,POINT OF CARE 137 MG/DL (70-110)
[2023-03-16 08:21] LABS: GLUCOMETER DEV NAME(LOC) 4E.2; GLUCOSE,POINT OF CARE 115 MG/DL (70-110)
[2023-03-16] MEDS: INSULIN LISPRO 100 UNITS/ML SQ PRN (16:50)
[2023-03-16] MEDS: HydrOXYzine PAMOATE 25 MG CAPSULE PO PRN (18:36)
[2023-03-16 18:47] LABS: GLUCOMETER DEV NAME(LOC) 6S.2; GLUCOSE,POINT OF CARE 112 MG/DL (70-110)
[2023-03-16 18:47] LABS: GLUCOMETER DEV NAME(LOC) 6S.2; GLUCOSE,POINT OF CARE 176 MG/DL (70-110)
[2023-03-16 20:11] VITALS: BP 111/71; PULSE 79; RESP 18; TEMP 98.2
[2023-03-16] MEDS: TraZODone HCL 100 MG TABLET PO SCH (20:56)
[2023-03-16] MEDS: IPRATROPIUM BROMIDE 0.5 MG/2.5 ML NEB SOLUTION NEB PRN (21:03)
[2023-03-16] MEDS: ALBUTEROL SULFATE 2.5 MG/0.5 ML NEB SOLUTION NEB PRN (21:04)
[2023-03-16 21:10] VITALS: PULSE 93; RESP 16; O2SAT 94
[2023-03-16 21:24] VITALS: PULSE 81; RESP 16; O2SAT 95
[2023-03-17 00:11] LABS: GLUCOMETER DEV NAME(LOC) 6N.2B; GLUCOSE,POINT OF CARE 109 MG/DL (70-110)
[2023-03-17 04:49] VITALS: BP 108/66; PULSE 75; RESP 18; TEMP 97.9
[2023-03-17] MEDS: GlipiZIDE 5 MG TABLET PO SCH (06:26)
[2023-03-17 06:46] LABS: GLUCOMETER DEV NAME(LOC) 6N.2B; GLUCOSE,POINT OF CARE 129 MG/DL (70-110)
[2023-03-17] MEDS: ALBUTEROL SULFATE 2.5 MG/0.5 ML NEB SOLUTION NEB PRN (07:59)
[2023-03-17] MEDS: IPRATROPIUM BROMIDE 0.5 MG/2.5 ML NEB SOLUTION NEB PRN (07:59)
[2023-03-17 08:05] VITALS: PULSE 82; RESP 16; O2SAT 95
[2023-03-17 08:18] VITALS: BP 100/51; PULSE 70; RESP 20; TEMP 97.7
[2023-03-17 08:20] VITALS: PULSE 73; RESP 16; O2SAT 96
[2023-03-17] MEDS: GuaiFENesin SR 600 MG ER TABLET PO SCH (08:55)
[2023-03-17] MEDS: HEPARIN SODIUM,PORCINE 5,000 UNITS/ML VIAL SQ SCH (08:55)
[2023-03-17] MEDS: MONTELUKAST SODIUM 10 MG TABLET PO SCH (08:55)
[2023-03-17] MEDS: FAMOTIDINE 20 MG TABLET PO SCH (08:56)
[2023-03-17] MEDS: FLUTICASONE/VILANTEROL 200-25 MCG/INH INHALER [14] IH SCH (08:56)
[2023-03-17] MEDS: GABAPENTIN 300 MG CAPSULE PO SCH (08:56)
[2023-03-17] MEDS: ARIPiprazole 5 MG TABLET PO SCH (08:56)
[2023-03-17] MEDS: DULoxetine HCL 60 MG CAPSULE PO SCH (08:56)
[2023-03-17] MEDS: ATORVASTATIN CALCIUM 40 MG TABLET PO SCH (08:56)
[2023-03-17] MEDS: DOCUSATE SODIUM 100 MG CAPSULE PO SCH (08:56)
[2023-03-17 10:26] LABS: COVID AG,FIA SOURCE NASAL SWAB
[2023-03-17 10:44] LABS: SARS-COV2 (COVID) ANTIGEN,FIA Negative (Negative)
[2023-03-17] MEDS ORDERED: ARIP5TAB37 PO (10:55)
[2023-03-17] MEDS ORDERED: INSU100V SQ (11:03)
[2023-03-17 14:36] LABS: GLUCOMETER DEV NAME(LOC) 6N.2B; GLUCOSE,POINT OF CARE 110 MG/DL (70-110)
== END 2023-03-17 13:55 | DRG 178 ==
LOC: EMS 18:45 → 6N 23:05 → 6S 03-08 00:59
PROVIDERS: ADMIT Internal Medicine; ATTEND Internal Medicine
PROC: XW033E5 Introduction of Remdesivir Anti-infective into Peripheral Vein, Percutaneous Approach, New Technology Group 5 (ICD-10-PCS; principal; 2023-03-08)
DX: U07.1 COVID-19 (principal); F33.2 Major depressive disorder, recurrent severe without psychotic features; R45.851 Suicidal ideations; J44.1 Chronic obstructive pulmonary disease with (acute) exacerbation; J44.0 Chronic obstructive pulmonary disease with (acute) lower respiratory infection; E66.01 Morbid (severe) obesity due to excess calories; E11.9 Type 2 diabetes mellitus without complications; F41.1 Generalized anxiety disorder; I10 Essential (primary) hypertension; I65.21 Occlusion and stenosis of right carotid artery; E78.5 Hyperlipidemia, unspecified; J10.1 Influenza due to other identified influenza virus with other respiratory manifestations; I25.10 Atherosclerotic heart disease of native coronary artery without angina pectoris; J20.5 Acute bronchitis due to respiratory syncytial virus; Z79.899 Other long term (current) drug therapy; Z83.3 Family history of diabetes mellitus; Z86.73 Personal history of transient ischemic attack (TIA), and cerebral infarction without residual deficits; Z68.38 Body mass index [BMI] 38.0-38.9, adult; Z88.5 Allergy status to narcotic agent; Z90.49 Acquired absence of other specified parts of digestive tract
CPT/HCPCS: 71045; 71275; 80048; 80053; 80307; 81001; 82962; 83605; 83690; 83735; 83880; 84484; 85025; 87040; 87804; 93005; 94640; 99285; J0456; J0696; J1644; J1815; J2060; J2930; J7040; J7050; Q0162; Q9967; 36415-L1; 36415-TC; J7613

== ENCOUNTER 2024-04-04 09:38 | Emergency (ER) | payer OTHER ==
[~2024-04-04] VITALS: Ht 167.6 cm; Wt 121.4 kg
[~2024-04-04 09:38] MED LIST changes: +ARIP5TAB37 PO; -BUSP10TA23 PO; -DOCU-385 PO; +INSU100V SQ; -SEMA1PEN3 SQ
[2024-04-04 10:28] LABS: BASOPHILS % (AUTO) 0.4 % (0.0-2.0); EOSINOPHILS % (AUTO) 0.1 % (1.0-6.0); HEMATOCRIT 44.5 % (36-46); HEMOGLOBIN 14.6 g/dL (12.0-16.0); LYMPHOCYTES # (AUTO) 1.4 K/uL (1.0-4.8); LYMPHOCYTES % (AUTO) 11.6 % (22.0-44.0); MEAN CORPUSCULAR HGB CONC 32.8 G/dL (31.0-37.0); MEAN CORPUSCULAR VOLUME 89 fL (80-100); MONOCYTES # (AUTO) 0.7 K/uL (0.1-1.0); MONOCYTES % (AUTO) 5.9 % (2.0-9.0); NEUTROPHILS # (AUTO) 9.9 K/uL (1.8-7.7); PLATELET COUNT (AUTO) 330 K/uL (150-450); RED BLOOD CELL COUNT(AUTO) 5.02 MIL/uL (4.00-5.20); RED CELL DISTRIBUTION WIDTH 14.8 % (11.5-14.5)
[2024-04-04 10:29] LABS: COVID AG,FIA SOURCE NASAL SWAB
[2024-04-04] MEDS: ONDANSETRON HCL 4 MG/2 ML VIAL IVP ONE (10:35)
[2024-04-04] MEDS: SODIUM CHLORIDE 0.9% 1,000 ML IV ONE (10:36)
[2024-04-04 10:41] LABS: CREATININE 1.14 mg/dL (0.60-1.30); POTASSIUM 3.7 mmol/L (3.5-5.1)
[2024-04-04 10:48] LABS: INFLUENZA TYPE A NEGATIVE FOR TYPE A (NEGATIVE); INFLUENZA TYPE B NEGATIVE FOR TYPE B (NEGATIVE); SARS-COV2 (COVID) ANTIGEN,FIA Negative (Negative)
[2024-04-04 10:53] LABS: TROPONIN I-HIGH SENSITIVITY 57 ng/L (<51)
[2024-04-04 12:07] LABS: APPEARANCE,URINE CLEAR (CLEAR); BILIRUBIN,URINE NEGATIVE (NEGATIVE); COLOR,URINE LIGHT YELLOW (YELLOW); GLUCOSE, URINE (UA) >=1000 mg/dL (NEGATIVE); LEUKOCYTE ESTERASE ,URINE NEGATIVE (NEGATIVE); NITRATE,URINE NEGATIVE (NEGATIVE); OCCULT BLOOD,URINE NEGATIVE (NEGATIVE); PROTEIN,URINE 30-70 mg/dL (NEGATIVE); UROBILINOGEN,URINE <=1.0 mg/dL (<=1.0)
[2024-04-04 12:26] LABS: SQUAMOUS EPITHELIAL CELL,UR Few /LPF (None Seen)
[2024-04-04 12:27] LABS: BACTERIA,URINE None Seen /HPF (None Seen); RBC,URINE None Seen /HPF (0-2); WBC,URINE 0-2 /HPF (0-5)
[2024-04-04 12:33] LABS: TROPONIN I-HIGH SENSITIVITY 57 ng/L (<51)
[2024-04-04 12:53] VITALS: BP 147/62; PULSE 93; RESP 18; TEMP 98.3; O2SAT 98
[2024-04-04] MEDS ORDERED: ONDA-104 PO (13:20)
== END 2024-04-04 15:13 | disposition home or self-care (01) ==
LOC: EMS 09:44
DX: K52.9 Noninfective gastroenteritis and colitis, unspecified (principal); E11.65 Type 2 diabetes mellitus with hyperglycemia; E66.01 Morbid (severe) obesity due to excess calories; I10 Essential (primary) hypertension; J44.89 Other specified chronic obstructive pulmonary disease; Z86.73 Personal history of transient ischemic attack (TIA), and cerebral infarction without residual deficits; Z90.49 Acquired absence of other specified parts of digestive tract; Z88.5 Allergy status to narcotic agent; Z79.4 Long term (current) use of insulin; Z20.822 Contact with and (suspected) exposure to COVID-19
CPT/HCPCS: 99284; 96374; 96361; 87426; 80048; 81001; 83690; 84484; 85025; 87804; 36415; 93005; J2405; J7030